=== PATIENT | male | born 1980 | race American Indian/Alaskan Native ===

== ENCOUNTER 2021-04-27 04:33 | Inpatient (IN) | payer SELFPAY ==
[2021-04-27] MEDS ORDERED: SODIUM CHLORIDE 0.9% 1000 ML 1,000 ML IV ONE ×2 (04:36→05:46)
--- NOTE | 2021-04-27 04:44 | Emergency Department Report ---
ED General Adult HPI - General Stated complaint: HYPERGLYCEMIA PUI?: Yes Source: patient, RN notes reviewed Limitations: No Limitations - History of Present Illness Initial comments: A 40-year-old male with history of type 1 diabetes on insulin pump. 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 Symptoms at this time include abdominal pain and shortness of breath. Patient denies history of PE or DVT. There is no calf or chest pain no nausea no vomiting no dizziness or lightheadedness. There is no fever in triage today. - Related Data Allergies Allergy/AdvReac Type Severity Reaction Status Date / Time No Known Allergies Allergy Verified 04/27/21 04:41 ED Review of Systems ROS: Stated complaint: HYPERGLYCEMIA Other details as noted in HPI Constitutional: chills. denies: fever Eyes: denies: eye pain, eye discharge, vision change ENT: congestion. denies: ear pain, throat pain Respiratory: cough, shortness of breath. denies: wheezing Cardiovascular: denies: chest pain, palpitations Endocrine: no symptoms reported Gastrointestinal: denies: abdominal pain, nausea, vomiting, diarrhea Genitourinary: denies: urgency, dysuria Musculoskeletal: denies: back pain, joint swelling, arthralgia Skin: denies: rash, lesions Neurological: denies: headache, weakness, paresthesias, vertigo Psychiatric: denies: anxiety, depression Hematological/Lymphatic: denies: easy bleeding, easy bruising ED Physical Exam - General General appearance: alert, in no apparent distress - Head Head exam: Present: normocephalic, normal inspection - Eye Eye exam: Present: normal appearance, EOMI Pupils: Present: normal accommodation - ENT ENT exam: Present: normal orophraynx, mucous membranes moist - Neck Neck exam: Present: normal inspection, full ROM. Absent: tenderness - Respiratory Respiratory exam: Present: normal lung sounds bilaterally, chest wall tenderness (anterior right upper chest wall tender to palpation, no crepitus no step off ). Absent: wheezes, rales, rhonchi, stridor - Cardiovascular Cardiovascular Exam: Present: normal rhythm, tachycardia, normal heart sounds. Absent: systolic murmur, diastolic murmur, rubs, gallop - GI/Abdominal GI/Abdominal exam: Present: soft, normal bowel sounds. Absent: distended, tenderness, bruit, hernia - Rectal Rectal exam: Present: deferred - Extremities Exam Extremities exam: Present: normal inspection, full ROM, normal capillary refill. Absent: tenderness - Back Exam Back exam: Present: normal inspection. Absent: CVA tenderness (L) - Neurological Exam Neurological exam: Present: alert, oriented X3, CN II-XII intact - Psychiatric Psychiatric exam: Present: normal affect, normal mood - Skin Skin exam: Present: warm, dry, intact, normal color. Absent: rash Critical care attestation.: If time is entered above; I have spent that time in minutes in the direct care of this critically ill patient, excluding procedure time. ED Disposition Condition: Stable
--- NOTE | 2021-04-27 04:49 | Event Note ---
ED Screening Note Date of service: 04/27/21 Time: 04:48 ED Screening Note: A 40-year-old male with history of type 1 diabetes on insulin pump. 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 Symptoms at this time include abdominal pain and shortness of breath. Patient denies history of PE or DVT. There is no calf or chest pain no nausea no vomiting no dizziness or lightheadedness. There is no fever in triage today. This initial assessment/diagnostic orders/clinical plan/treatment(s) is/are subject to change based on patients health status, clinical progression and re-assessment by fellow clinical providers in the ED. Further treatment and workup at subsequent clinical providers discretion. Patient/guardian urged not to elope from the ED as their condition may be serious if not clinically assessed and managed. Initial orders include: ekg cxr, cmp cbc, pt, ptt, iv,
--- NOTE | 2021-04-27 05:18 | XRay Report ---
CHEST 2 VIEWS INDICATION: sob. COMPARISON: None FINDINGS: SUPPORT DEVICES: None. HEART: Within normal limits. LUNGS/PLEURA: No acute air space or interstitial disease. No pneumothorax. ADDITIONAL FINDINGS: None. IMPRESSION: 1. No acute findings. Signer Name: Pankaj Kennedy MD Signed: 04/27/2021 5:13 AM Workstation Name: [id number]
[2021-04-27 05:21] LABS: INR 1.21 (0.87-1.13); Mean Corpuscular HGB Conc 29 % (32-34); Mean Corpuscular Volume 90 fl (84-94); Platelet Count 262 K/mm3 (140-440); Red Blood Count 5.83 M/mm3 (3.65-5.03); Red Cell Distribution Width 16.4 % (13.2-15.2)
[2021-04-27 05:22] LABS: Partial Thromboplastin Time 26.6 Sec. (24.2-36.6)
[2021-04-27 05:36] LABS: Albumin 4.9 g/dL (3.9-5); Calcium 9.9 mg/dL (8.4-10.2)
[2021-04-27 05:47] LABS: Hematocrit 52.4 % (35.5-45.6); Hemoglobin 15.4 gm/dl (11.8-15.2)
[2021-04-27] MEDS ORDERED: INSULIN REGULAR, HUMAN 100 UNITS/1 ML IV ONE (05:48)
[2021-04-27] MEDS ORDERED: DEXTROSE 50% IN WATER (25GM) 50 ML SYRINGE IV PRN (06:23)
--- NOTE | 2021-04-27 06:27 | Emergency Department Report ---
ED General Adult HPI - General Chief complaint: Dyspnea/Respdistress Stated complaint: HYPERGLYCEMIA Time Seen by Provider: 04/27/21 05:45 Source: patient Mode of arrival: Ambulatory Limitations: No Limitations - History of Present Illness Initial comments: Patient presents secondary to shortness of breath. He is a truck shop supervisor. He had become short of breath and generally weak. His and he decided he should come in to get seen. Symptoms started over the last day. There has been no significant cough or congestion. He has had subjective fevers and chills. He states he just has malaise. There is no muscle ache or body ache. He denies dysuria or frequency. There has been no known coronavirus exposure. He checked his sugar earlier today and it was 500. That is extraordinarily high for him. He has had DKA before and required admission. The last time that occurred was in 2019. Patient states that he has been taking his insulin regularly. There has been some nausea with vomiting. He has not had diarrhea. He denies hematemesis or coffee-ground emesis. There is no melenic stool. Patient denies recent travel. Severity scale (0 -10): 3 - Related Data Allergies Allergy/AdvReac Type Severity Reaction Status Date / Time No Known Allergies Allergy Verified 04/27/21 04:41 ED Review of Systems ROS: Stated complaint: HYPERGLYCEMIA Other details as noted in HPI Comment: All other systems reviewed and negative Constitutional: fever (Subjective) Eyes: denies: vision change ENT: denies: epistaxis Cardiovascular: denies: chest pain Endocrine: increased urine Gastrointestinal: as per HPI Genitourinary: denies: dysuria Musculoskeletal: denies: back pain Skin: denies: rash Neurological: denies: headache Hematological/Lymphatic: denies: easy bruising ED Past Medical Hx - Past Medical History Previous Medical History?: Yes Hx Diabetes: Yes - Surgical History Past Surgical History?: No - Family History Family history: diabetes ED Physical Exam - General Limitations: No Limitations, Other (Pulse ox noted and normal.) General appearance: alert, in distress (Kussmaul respirations) - Head Head exam: Present: atraumatic, normocephalic - Eye Eye exam: Present: normal appearance, EOMI. Absent: scleral icterus - ENT ENT exam: Present: mucous membranes dry, normal external ear exam - Neck Neck exam: Present: normal inspection. Absent: meningismus - Respiratory Respiratory exam: Present: normal lung sounds bilaterally, respiratory distress (Kussmaul respiration) - Cardiovascular Cardiovascular Exam: Present: normal rhythm, tachycardia - GI/Abdominal GI/Abdominal exam: Present: soft. Absent: distended, tenderness - Extremities Exam Extremities exam: Present: normal capillary refill - Back Exam Back exam: Absent: CVA tenderness (R), CVA tenderness (L) - Neurological Exam Neurological exam: Present: alert, oriented X3, CN II-XII intact. Absent: motor sensory deficit - Psychiatric Psychiatric exam: Present: normal affect, normal mood - Skin Skin exam: Present: warm, dry ED Course Vital Signs 04/27/21 04:38 Temperature 99.0 F Pulse Rate 118 H Respiratory 23 Rate Blood Pressure 125/59 [Right] O2 Sat by Pulse 99 Oximetry - Reevaluation(s) Reevaluation #1: 04/27/21 06:26 Labs have been noted. Patient is in DKA. He will require admission. DKA protocol has been instituted. He does have significant leukocytosis with no obvious source for infection. UA and chest x-ray have also been ordered. Old records noted. Reevaluation #2: 04/27/21 07:03 Chest x-ray has been reviewed. Patient does not have evidence of coronavirus. We will still check urine. He will still require admission. DKA protocol has been started. ED Medical Decision Making - Lab Data Result diagrams: 04/27/21 04:53 04/27/21 04:53 Rhythm strip: Sinus tachycardia without ectopy. Monitor observe 10 seconds. - Radiology Data Radiology results: report reviewed - Medical Decision Making Patient presents with generalized malaise in the setting of nausea and vomiting. He had Kussmaul respirations. He was tachycardic. He did report dry mucous membranes. Glucose was elevated. All of this is consistent with diabetic keto acidosis. The trigger for him developing DKA is unclear. He does not have any obvious respiratory infection. He has not reported dysuria or frequency. There is no evidence of cellulitis or rash. He does not have chest x-ray findings suggestive of coronavirus. Regardless, he does have leukocytosis which could simply be related to DKA. We will proceed with ongoing treatment. Insulin drip has been started. He will require ICU admit. Critical Care Time: Yes (35 minutes exclusive of all procedures) Critical care attestation.: If time is entered above; I have spent that time in minutes in the direct care of this critically ill patient, excluding procedure time. ED Disposition Clinical Impression: Dehydration DKA, type 1 Qualifiers: Diabetes mellitus complication detail: without coma Qualified Code(s): E10.10 - Type 1 diabetes mellitus with ketoacidosis without coma Leukocytosis Qualifiers: Leukocytosis type: unspecified Qualified Code(s): D72.829 - Elevated white blood cell count, unspecified Disposition: 09 ADMITTED INPATIENT Is pt being admited?: Yes Condition: Stable Instructions: Diabetes Mellitus Type 2 in Adults (ED)
[2021-04-27] MEDS: INSULIN REGULAR, HUMAN 100 UNITS in SODIUM CHLORIDE 0.9% 99 ML IV SCH ×3 (06:52→20:56)
[2021-04-27] MEDS ORDERED: INSULIN REGULAR, HUMAN 100 UNITS in SODIUM CHLORIDE 0.9% 99 ML IV SCH (07:00)
[2021-04-27 07:02] LABS: Band Neutrophils # (Manual) 1.1 K/mm3; Basophils % (Manual) 0 % (0.0-1.8); Total Cells Counted 100
[2021-04-27 07:03] LABS: Toxic Vacuolation 1+
[2021-04-27 07:53] LABS: Calcium 8.9 mg/dL (8.4-10.2)
[2021-04-27] MEDS ORDERED: SODIUM BICARBONATE 150 MEQ in DEXTROSE 5% IN WATER 1,000 ML IV SCH (09:00)
--- NOTE | 2021-04-27 09:04 | History and Physical Report ---
History of Present Illness History of present illness: HPI: 40-year-old male past medical history of type 1 diabetes on insulin presenting to our facility for general malaise associated with nausea and vomiting. Onset was since 6 PM yesterday. Patient denies any fevers, chills, body aches. Blood sugars were checked yesterday and noted to be in 500s. He wears a insulin pump and stated that he has had some concerns with malfunctioning. He also stated he needed more insulin for his pump's reservoir. His ballistics tester office had sent the prescription to his pharmacy but it only just got filled today. Patient was brought to emergency room yesterday by . Patient is adamant that he is compliant with his insulin regimen and counts his carbohydrates. He states his fasting AM sugars typically range from 75 to 110 mg/dL. He follows with Dr. Lila Crow his ballistics tester. He states his last episode of DKA was more than 10 years ago. He has been a type 1 diabetic for 25 years and self reports an A1c of 7.3. On my encounter, patient states that he is feeling better. Remainder of ROS negative except for stated above PMHx: Type 1 diabetes PSHx: denies FHx: diabetes SHx: Tobacco use-denies ETOH Use-denies Recreational Drug Use- denies Occupation-truck rental clerk Interactive Media Specialist: Dr. Lila Crow , [facility] Past History Past Medical History: diabetes Past Surgical History: No surgical history Social history: no significant social history, Family history: diabetes Medications and Allergies Allergies Allergy/AdvReac Type Severity Reaction Status Date / Time No Known Allergies Allergy Verified 04/27/21 04:41 Active Meds: Active Medications Dextrose (Dextrose 50% In Water (25gm) 50 Ml Syringe) 0 ml IV Q30MIN PRN; Protocol PRN Reason: Hypoglycemia Insulin Human Regular 100 (units/ Sodium Chloride) 100 mls @ 8 mls/hr IV TITR FARHEEN; Protocol Last Titration: 04/27/21 07:59 Dose: 8 units/hr, 8 mls/hr Sodium Bicarbonate 150 meq/ (Dextrose) 1,150 mls @ 125 mls/hr IV DIRECT FARHEEN Review of Systems Constitutional: weakness, malaise Exam - Physical Exam Narrative exam: Physical Exam: VITAL SIGNS: Reviewed. GENERAL: The patient appears normally developed, Vital signs as documented. HEAD: No signs of head trauma. EYES: Pupils are equal. Extraocular motions intact. EARS: Hearing grossly intact. MOUTH: Oropharynx is normal. NECK: No adenopathy, no JVD. CHEST: Chest with clear breath sounds bilaterally. No wheezes, rales, or rhonchi. CARDIAC: Regular rate and rhythm. S1 and S2, without murmurs, gallops, or rubs. VASCULAR: No Edema. Peripheral pulses normal and equal in all extremities. ABDOMEN: Soft, non tender and non distended. No rebound or guarding, and no masses palpated. Bowel Sounds normal. MUSCULOSKELETAL: Good range of motion of all major joints. Extremities without clubbing, cyanosis or edema. NEUROLOGIC EXAM: Alert and oriented x 4. no focal sensory or strength deficits. PSYCHIATRIC: Mood normal. SKIN: detail exam as documented in skin assessment - Constitutional Vitals: Temp Pulse Resp BP Pulse Ox 99.0 F 99 H 20 126/51 99 04/27/21 04:38 04/27/21 05:51 04/27/21 08:06 04/27/21 07:45 04/27/21 08:06 Results - Labs CBC & Chem 7: 04/27/21 04:53 04/27/21 10:05 Labs: Laboratory Last Values WBC 28.7 K/mm3 (4.5-11.0) H 04/27/21 04:53 RBC 5.83 M/mm3 (3.65-5.03) H 04/27/21 04:53 Hgb 15.4 gm/dl (11.8-15.2) H 04/27/21 04:53 Hct 52.4 % (35.5-45.6) H 04/27/21 04:53 MCV 90 fl (84-94) 04/27/21 04:53 MCH 26 pg (28-32) L 04/27/21 04:53 MCHC 29 % (32-34) L 04/27/21 04:53 RDW 16.4 % (13.2-15.2) H 04/27/21 04:53 Plt Count 262 K/mm3 (140-440) 04/27/21 04:53 Add Manual Diff Complete 04/27/21 04:53 Total Counted 100 04/27/21 04:53 Seg Neuts % (Manual) 82.0 % (40.0-70.0) H 04/27/21 04:53 Band Neutrophils % 4.0 % 04/27/21 04:53 Lymphocytes % (Manual) 8.0 % (13.4-35.0) L 04/27/21 04:53 Reactive Lymphs % (Man) 0 % 04/27/21 04:53 Monocytes % (Manual) 4.0 % (0.0-7.3) 04/27/21 04:53 Eosinophils % (Manual) 2.0 % (0.0-4.3) 04/27/21 04:53 Basophils % (Manual) 0 % (0.0-1.8) 04/27/21 04:53 Metamyelocytes % 0 % 04/27/21 04:53 Myelocytes % 0 % 04/27/21 04:53 Promyelocytes % 0 % 04/27/21 04:53 Blast Cells % 0 % 04/27/21 04:53 Nucleated RBC % Not Reportable 04/27/21 04:53 Seg Neutrophils # Man 23.5 K/mm3 (1.8-7.7) H 04/27/21 04:53 Band Neutrophils # 1.1 K/mm3 04/27/21 04:53 Lymphocytes # (Manual) 2.3 K/mm3 (1.2-5.4) 04/27/21 04:53 Abs React Lymphs (Man) 0.0 K/mm3 04/27/21 04:53 Monocytes # (Manual) 1.1 K/mm3 (0.0-0.8) H 04/27/21 04:53 Eosinophils # (Manual) 0.6 K/mm3 (0.0-0.4) H 04/27/21 04:53 Basophils # (Manual) 0.0 K/mm3 (0.0-0.1) 04/27/21 04:53 Metamyelocytes # 0.0 K/mm3 04/27/21 04:53 Myelocytes # 0.0 K/mm3 04/27/21 04:53 Promyelocytes # 0.0 K/mm3 04/27/21 04:53 Blast Cells # 0.0 K/mm3 04/27/21 04:53 WBC Morphology Not Reportable 04/27/21 04:53 Hypersegmented Neuts Not Reportable 04/27/21 04:53 Hyposegmented Neuts Not Reportable 04/27/21 04:53 Hypogranular Neuts Not Reportable 04/27/21 04:53 Smudge Cells Not Reportable 04/27/21 04:53 Toxic Granulation Not Reportable 04/27/21 04:53 Toxic Vacuolation 1+ 04/27/21 04:53 Dohle Bodies Not Reportable 04/27/21 04:53 Pelger-Huet Anomaly Not Reportable 04/27/21 04:53 Ruperto Rods Not Reportable 04/27/21 04:53 Platelet Estimate Appears normal 04/27/21 04:53 Clumped Platelets Not Reportable 04/27/21 04:53 Plt Clumps, EDTA Not Reportable 04/27/21 04:53 Large Platelets Not Reportable 04/27/21 04:53 Giant Platelets Not Reportable 04/27/21 04:53 Platelet Satelliting Not Reportable 04/27/21 04:53 Plt Morphology Comment Not Reportable 04/27/21 04:53 RBC Morphology Not Reportable 04/27/21 04:53 Dimorphic RBCs Not Reportable 04/27/21 04:53 Polychromasia Not Reportable 04/27/21 04:53 Hypochromasia Not Reportable 04/27/21 04:53 Poikilocytosis Not Reportable 04/27/21 04:53 Anisocytosis Not Reportable 04/27/21 04:53 Microcytosis Not Reportable 04/27/21 04:53 Macrocytosis Not Reportable 04/27/21 04:53 Spherocytes Not Reportable 04/27/21 04:53 Pappenheimer Bodies Not Reportable 04/27/21 04:53 Sickle Cells Not Reportable 04/27/21 04:53 Target Cells Not Reportable 04/27/21 04:53 Tear Drop Cells Not Reportable 04/27/21 04:53 Ovalocytes Not Reportable 04/27/21 04:53 Helmet Cells Not Reportable 04/27/21 04:53 Yusuf-Lamy Bodies Not Reportable 04/27/21 04:53 [place] Rings Not Reportable 04/27/21 04:53 [place] Cells Not Reportable 04/27/21 04:53 Bite Cells Not Reportable 04/27/21 04:53 Crenated Cell Not Reportable 04/27/21 04:53 Elliptocytes Not Reportable 04/27/21 04:53 Acanthocytes (Spur) Not Reportable 04/27/21 04:53 Rouleaux Not Reportable 04/27/21 04:53 Hemoglobin C Crystals Not Reportable 04/27/21 04:53 Schistocytes Not Reportable 04/27/21 04:53 Malaria parasites Not Reportable 04/27/21 04:53 Roberto Bodies Not Reportable 04/27/21 04:53 Hem Pathologist Commnt No 04/27/21 04:53 PT 16.6 Sec. (12.2-14.9) H 04/27/21 04:53 INR 1.21 (0.87-1.13) H 04/27/21 04:53 APTT 26.6 Sec. (24.2-36.6) 04/27/21 04:53 VBG pH 6.973 (7.320-7.420) L* 04/27/21 04:53 Sodium 136 mmol/L (137-145) L 04/27/21 06:38 Potassium 6.6 mmol/L (3.6-5.0) H* 04/27/21 06:38 Chloride 97.7 mmol/L (98-107) L 04/27/21 06:38 Carbon Dioxide 3 mmol/L (22-30) L* 04/27/21 06:38 Anion Gap 42 mmol/L 04/27/21 06:38 BUN 24 mg/dL (9-20) H 04/27/21 06:38 Creatinine 1.9 mg/dL (0.8-1.3) H 04/27/21 06:38 Estimated GFR 48 ml/min 04/27/21 06:38 BUN/Creatinine Ratio 13 % 04/27/21 06:38 Glucose 687 mg/dL (75-100) H* 04/27/21 06:38 POC Glucose 541 mg/dL (70-105) H 04/27/21 08:03 Lactic Acid 7.20 mmol/L (0.7-2.0) H* 04/27/21 06:38 Calcium 8.9 mg/dL (8.4-10.2) 04/27/21 06:38 Phosphorus 9.00 mg/dL (2.5-4.5) H 04/27/21 06:38 Magnesium 2.80 mg/dL (1.7-2.3) H 04/27/21 06:38 Total Bilirubin 0.20 mg/dL (0.1-1.2) 04/27/21 04:53 AST 19 units/L (5-40) 04/27/21 04:53 ALT 26 units/L (7-56) 04/27/21 04:53 Alkaline Phosphatase 148 units/L (35-129) H 04/27/21 04:53 Total Protein 7.8 g/dL (6.3-8.2) 04/27/21 04:53 Albumin 4.9 g/dL (3.9-5) 04/27/21 04:53 Albumin/Globulin Ratio 1.7 % 04/27/21 04:53 Assessment and Plan Assessment and plan: #Diabetic ketoacidosis - suspect patient has had a malfunctioning insulin pump/out of insulin - Blood sugars in 687 on admission, A, VBG 6.9, UA shows elevated glucose+ketones - Fluids and insulin gtt per DKA protocol - start bicarb gtt - trend gap on serial bmp - CCM consulted #Severe metabolic acidosis - low bicarb: 3, ph: 6.9 - bicarb gtt - DKA management as above. - trend on serial bmp for improvement #Hyperkalemia - 6.6 -->5.2 - corrected with insulin gtt. - trend on bmp #SIRS POA - elevated wbc, LA, likey reactive from DKA - doubt infectious etiology #Type 2 diabetes with hyperglycemia - accuchecks q1hr until gap closes - uses insulin pump at home, pump had malfunction - follows with ballistics tester as an outpatient - self reports a1c: 7.3 - ordered a1c. #Advance care planning Disease education conducted, care plan discussed, diagnoses discussed, prognosis discussed, patient is full code, patient acknowledges understanding and agree with care plan, +30 minutes. Dispo: Currently ICU status. Patient clinical status improved. Once anion gap closed and patient tolerating p.o., can start subcutaneous insulin injections. anticipate d/c in next 24 hrs.
[2021-04-27 10:06] LABS: Bacteria,Urine 1+ /HPF (Negative); Bilirubin,Urine NEG (Negative); Blood,Urine MOD (Negative); Color,Urine Straw (Yellow); Mucus,Urine FEW /HPF; RBC,Urine < 1.0 /HPF (0.0-6.0); Urobilinogen,Urine < 2.0 mg/dL (<2.0)
[2021-04-27 10:08] LABS: WBC,Urine < 1.0 /HPF (0.0-6.0)
[2021-04-27 10:38] LABS: Calcium 8.5 mg/dL (8.4-10.2)
--- NOTE | 2021-04-27 14:25 | Consultation ---
History of Present Illness - Reason for Consult Consult date: 04/27/21 - History of Present Illness 40-year-old male past medical history of type 1 diabetes on insulin presenting to our facility for general malaise associated with nausea and vomiting. Onset was since 6 PM yesterday. Patient denies any fevers, chills, body aches. Blood sugars were checked yesterday and noted to be in 500s. He wears a insulin pump and stated that he has had some concerns with malfunctioning. He also stated he needed more insulin for his pump's reservoir. His director of manufacturing office had sent the prescription to his pharmacy but it only just got filled today. Patient was brought to emergency room yesterday by . Patient is adamant that he is compliant with his insulin regimen and counts his carbohydrates. He states his fasting AM sugars typically range from 75 to 110 mg/dL. He follows with Dr. Lila Crow his director of manufacturing. He states his last episode of DKA was more than 10 years ago. He has been a type 1 diabetic for 25 years and self reports an A1c of 7.3. On my encounter, patient states that he is feeling better. Remainder of ROS negative except for stated above Past History Past Medical History: diabetes Past Surgical History: No surgical history Social history: no significant social history, Family history: diabetes Medications and Allergies Allergies Allergy/AdvReac Type Severity Reaction Status Date / Time No Known Allergies Allergy Verified 04/27/21 04:41 Active Meds: Active Medications Dextrose (Dextrose 50% In Water (25gm) 50 Ml Syringe) 0 ml IV Q30MIN PRN; Pro tocol PRN Reason: Hypoglycemia Insulin Human Regular 100 (units/ Sodium Chloride) 100 mls @ 8 mls/hr IV TITR FARHEEN; Protocol Last Titration: 04/27/21 13:56 Dose: 10 units/hr, 10 mls/hr Sodium Bicarbonate 150 meq/ (Dextrose) 1,150 mls @ 125 mls/hr IV DIRECT FARHEEN Last Admin: 04/27/21 09:52 Dose: 125 mls/hr Exam - Constitutional Vitals: Temp Pulse Resp BP Pulse Ox 99.0 F 99 H 20 126/51 99 04/27/21 04:38 04/27/21 05:51 04/27/21 08:06 04/27/21 07:45 04/27/21 08:06 Results - Labs CBC & Chem 7: 04/27/21 04:53 04/27/21 10:05 Labs: Abnormal lab results 04/27/21 04/27/21 04/27/21 Range/Units 04:53 04:53 04:53 WBC 28.7 H (4.5-11.0) K/mm3 RBC 5.83 H (3.65-5.03) M/mm3 Hgb 15.4 H (11.8-15.2) gm/dl Hct 52.4 H (35.5-45.6) % MCH 26 L (28-32) pg MCHC 29 L (32-34) % RDW 16.4 H (13.2-15.2) % Seg Neuts % (Manual) 82.0 H (40.0-70.0) % Lymphocytes % (Manual) 8.0 L (13.4-35.0) % Seg Neutrophils # Man 23.5 H (1.8-7.7) K/mm3 Monocytes # (Manual) 1.1 H (0.0-0.8) K/mm3 Eosinophils # (Manual) 0.6 H (0.0-0.4) K/mm3 PT (12.2-14.9) Sec. INR (0.87-1.13) VBG pH 6.973 L* (7.320-7.420) Sodium (137-145) mmol/L Potassium 5.8 H (3.6-5.0) mmol/L Chloride 95.3 L (98-107) mmol/L Carbon Dioxide 4 L* (22-30) mmol/L BUN 24 H (9-20) mg/dL Creatinine 2.1 H (0.8-1.3) mg/dL Glucose 642 H* (75-100) mg/dL POC Glucose (70-105) mg/dL Lactic Acid (0.7-2.0) mmol/L Phosphorus (2.5-4.5) mg/dL Magnesium (1.7-2.3) mg/dL Alkaline Phosphatase 148 H (35-129) units/L 04/27/21 04/27/21 04/27/21 Range/Units 04:53 06:38 06:38 WBC (4.5-11.0) K/mm3 RBC (3.65-5.03) M/mm3 Hgb (11.8-15.2) gm/dl Hct (35.5-45.6) % MCH (28-32) pg MCHC (32-34) % RDW (13.2-15.2) % Seg Neuts % (Manual) (40.0-70.0) % Lymphocytes % (Manual) (13.4-35.0) % Seg Neutrophils # Man (1.8-7.7) K/mm3 Monocytes # (Manual) (0.0-0.8) K/mm3 Eosinophils # (Manual) (0.0-0.4) K/mm3 PT 16.6 H (12.2-14.9) Sec. INR 1.21 H (0.87-1.13) VBG pH (7.320-7.420) Sodium (137-145) mmol/L Potassium (3.6-5.0) mmol/L Chloride (98-107) mmol/L Carbon Dioxide (22-30) mmol/L BUN (9-20) mg/dL Creatinine (0.8-1.3) mg/dL Glucose (75-100) mg/dL POC Glucose (70-105) mg/dL Lactic Acid 7.20 H* (0.7-2.0) mmol/L Phosphorus 9.00 H (2.5-4.5) mg/dL Magnesium (1.7-2.3) mg/dL Alkaline Phosphatase (35-129) units/L 04/27/21 04/27/21 04/27/21 Range/Units 06:38 08:03 09:15 WBC (4.5-11.0) K/mm3 RBC (3.65-5.03) M/mm3 Hgb (11.8-15.2) gm/dl Hct (35.5-45.6) % MCH (28-32) pg MCHC (32-34) % RDW (13.2-15.2) % Seg Neuts % (Manual) (40.0-70.0) % Lymphocytes % (Manual) (13.4-35.0) % Seg Neutrophils # Man (1.8-7.7) K/mm3 Monocytes # (Manual) (0.0-0.8) K/mm3 Eosinophils # (Manual) (0.0-0.4) K/mm3 PT (12.2-14.9) Sec. INR (0.87-1.13) VBG pH (7.320-7.420) Sodium 136 L (137-145) mmol/L Potassium 6.6 H* (3.6-5.0) mmol/L Chloride 97.7 L (98-107) mmol/L Carbon Dioxide 3 L* (22-30) mmol/L BUN 24 H (9-20) mg/dL Creatinine 1.9 H (0.8-1.3) mg/dL Glucose 687 H* (75-100) mg/dL POC Glucose 541 H 424 H (70-105) mg/dL Lactic Acid (0.7-2.0) mmol/L Phosphorus (2.5-4.5) mg/dL Magnesium 2.80 H (1.7-2.3) mg/dL Alkaline Phosphatase (35-129) units/L 04/27/21 04/27/21 04/27/21 Range/Units 10:05 10:05 11:09 WBC (4.5-11.0) K/mm3 RBC (3.65-5.03) M/mm3 Hgb (11.8-15.2) gm/dl Hct (35.5-45.6) % MCH (28-32) pg MCHC (32-34) % RDW (13.2-15.2) % Seg Neuts % (Manual) (40.0-70.0) % Lymphocytes % (Manual) (13.4-35.0) % Seg Neutrophils # Man (1.8-7.7) K/mm3 Monocytes # (Manual) (0.0-0.8) K/mm3 Eosinophils # (Manual) (0.0-0.4) K/mm3 PT (12.2-14.9) Sec. INR (0.87-1.13) VBG pH (7.320-7.420) Sodium (137-145) mmol/L Potassium 5.2 H D (3.6-5.0) mmol/L Chloride (98-107) mmol/L Carbon Dioxide 4 L* (22-30) mmol/L BUN 25 H (9-20) mg/dL Creatinine 1.7 H (0.8-1.3) mg/dL Glucose 391 H (75-100) mg/dL POC Glucose 309 H (70-105) mg/dL Lactic Acid 3.30 H* (0.7-2.0) mmol/L Phosphorus (2.5-4.5) mg/dL Magnesium (1.7-2.3) mg/dL Alkaline Phosphatase (35-129) units/L 04/27/21 04/27/21 Range/Units 12:24 13:50 WBC (4.5-11.0) K/mm3 RBC (3.65-5.03) M/mm3 Hgb (11.8-15.2) gm/dl Hct (35.5-45.6) % MCH (28-32) pg MCHC (32-34) % RDW (13.2-15.2) % Seg Neuts % (Manual) (40.0-70.0) % Lymphocytes % (Manual) (13.4-35.0) % Seg Neutrophils # Man (1.8-7.7) K/mm3 Monocytes # (Manual) (0.0-0.8) K/mm3 Eosinophils # (Manual) (0.0-0.4) K/mm3 PT (12.2-14.9) Sec. INR (0.87-1.13) VBG pH (7.320-7.420) Sodium (137-145) mmol/L Potassium (3.6-5.0) mmol/L Chloride (98-107) mmol/L Carbon Dioxide (22-30) mmol/L BUN (9-20) mg/dL Creatinine (0.8-1.3) mg/dL Glucose (75-100) mg/dL POC Glucose 313 H 321 H (70-105) mg/dL Lactic Acid (0.7-2.0) mmol/L Phosphorus (2.5-4.5) mg/dL Magnesium (1.7-2.3) mg/dL Alkaline Phosphatase (35-129) units/L
[2021-04-27 16:45] LABS: BUN/Creatinine Ratio 15; Blood Urea Nitrogen 21 mg/dL (9-20); Calcium 7.9 mg/dL (8.4-10.2); Hemolysis Index 67
[2021-04-27] MEDS: D5W/0.45% NACL/KCL 20 MEQ 20 MEQ/1,000 ML BAG IV SCH (18:48)
[2021-04-27 21:28] LABS: BUN/Creatinine Ratio 15; Blood Urea Nitrogen 21 mg/dL (9-20); Calcium 8.5 mg/dL (8.4-10.2); Hemolysis Index 12
[2021-04-28] MEDS: INSULIN REGULAR, HUMAN 100 UNITS in SODIUM CHLORIDE 0.9% 99 ML IV SCH ×2 (01:42→13:56)
[2021-04-28 07:21] LABS: BUN/Creatinine Ratio 15; Blood Urea Nitrogen 18 mg/dL (9-20); Calcium 9.2 mg/dL (8.4-10.2); Hemolysis Index 14
--- NOTE | 2021-04-28 08:03 | Discharge Summary ---
Providers - Providers Date of Admission: 04/27/21 07:23 Attending physician: ZACH ORLANDO MD 04/27/21 06:24 Consult to Dietitian/Nutrition [CONS] Routine Physician Instructions: Reason For Exam: DKA Reason for Consult: Nutrition Recommendations Reason for Consult: Diet education 04/27/21 08:15 Consult to Physician [CONS] Routine Comment: Consulting Provider: AFTAB CLARK Physician Instructions: Reason For Exam: dka management Primary care physician: CONICAL MIXER Hospitalization Condition: Stable Exam - Constitutional Vitals: Temp Pulse Resp BP Pulse Ox 99.0 F 96 H 17 112/18 100 04/27/21 04:38 04/28/21 07:01 04/28/21 07:01 04/28/21 07:01 04/28/21 07:01 Plan Follow up with: SUE ALEXANDRE MD [Primary Care Provider] - 3-5 Days
[2021-04-28 11:56] LABS: BUN/Creatinine Ratio 16; Blood Urea Nitrogen 19 mg/dL (9-20); Calcium 9.2 mg/dL (8.4-10.2); Hemolysis Index 7
--- NOTE | 2021-04-28 12:30 | Progress Note ---
Assessment and Plan Assessment and plan: HPI: 40-year-old male past medical history of type 1 diabetes on insulin presenting to our facility for general malaise associated with nausea and vomiting. Onset was since 6 PM yesterday. Patient denies any fevers, chills, body aches. Blood sugars were checked yesterday and noted to be in 500s. He wears a insulin pump and stated that he has had some concerns with malfunctioning. He also stated he needed more insulin for his pump's reservoir. His pharmacy student office had sent the prescription to his pharmacy but it only just got filled today. Patient was brought to emergency room yesterday by . Patient is adamant that he is compliant with his insulin regimen and counts his carbohydrates. He states his fasting AM sugars typically range from 75 to 110 mg/dL. He follows with Dr. Lila Crow his pharmacy student. He states his last episode of DKA was more than 10 years ago. He has been a type 1 diabetic for 25 years and self reports an A1c of 7.3. On my encounter, patient states that he is feeling better. Admitted for DKA to ICU. Hospital Course: 04/27/21: Currently ICU status. Patient clinical status improved. Once anion gap closed and patient tolerating p.o., can start subcutaneous insulin injections. anticipate d/c in next 24 hrs. 04/28/21: Serial BMP's demonstrate worsening of AG. Coordinated with RN to continue insulin drip and uptitrate D5W+ 20K as need to maintain insulin gtt. WIll follow anion gap. Once closed and patient tolerating PO, will plan for discharge. Anticipate in next 12- 24 hrs. Assessment and Plan: #Diabetic ketoacidosis - suspect patient has had a malfunctioning insulin pump/out of insulin - Blood sugars in 687 on admission, A, VBG 6.9, UA shows elevated glucose+ketones - Fluids and insulin gtt per DKA protocol - start bicarb gtt - trend gap on serial bmp - CCM consulted #Severe metabolic acidosis - low bicarb: 3, ph: 6.9 - bicarb gtt - DKA management as above. - trend on serial bmp for improvement #Hyperkalemia - 6.6 -->5.2 - corrected with insulin gtt. - trend on bmp #SIRS POA - elevated wbc, LA, likey reactive from DKA - doubt infectious etiology #Type 2 diabetes with hyperglycemia - accuchecks q1hr until gap closes - uses insulin pump at home, pump had malfunction - follows with pharmacy student as an outpatient - self reports a1c: 7.3 - ordered a1c. #Advance care planning Disease education conducted, care plan discussed, diagnoses discussed, prognosis discussed, patient is full code, patient acknowledges understanding and agree with care plan, +30 minutes. The high probability of a clinically significant, sudden or life threatening deterioration of the [endo, renal] system(s) required my full and direct attention, intervention and personal management. The aggregate critical care time was [60] minutes. This time is in addition to time spent performing reported procedures but includes the following: [x] Data Review and interpretation [x] Patient assessment and monitoring of vital signs [x] Documentation [x] Medication orders and management History Interval history: Patient has no acute complaints today. Hospitalist Physical - Physical exam Narrative exam: Physical Exam: VITAL SIGNS: Reviewed. GENERAL: The patient appears normally developed, Vital signs as documented. HEAD: No signs of head trauma. EYES: Pupils are equal. Extraocular motions intact. EARS: Hearing grossly intact. MOUTH: Oropharynx is normal. NECK: No adenopathy, no JVD. CHEST: Chest with clear breath sounds bilaterally. No wheezes, rales, or rhonchi. CARDIAC: Regular rate and rhythm. S1 and S2, without murmurs, gallops, or rubs. VASCULAR: No Edema. Peripheral pulses normal and equal in all extremities. ABDOMEN: Soft, non tender and non distended. No rebound or guarding, and no masses palpated. Bowel Sounds normal. MUSCULOSKELETAL: Good range of motion of all major joints. Extremities without clubbing, cyanosis or edema. NEUROLOGIC EXAM: Alert and oriented x 4. no focal sensory or strength deficits. PSYCHIATRIC: Mood normal. SKIN: detail exam as documented in skin assessment - Constitutional Vitals: Temp Pulse Resp BP Pulse Ox 99.0 F 96 H 22 99/43 100 04/27/21 04:38 04/28/21 09:01 04/28/21 09:01 04/28/21 09:01 04/28/21 09:01 Results - Labs CBC & Chem 7: 04/27/21 04:53 04/28/21 10:57 Labs: Laboratory Last Values WBC 28.7 K/mm3 (4.5-11.0) H 04/27/21 04:53 RBC 5.83 M/mm3 (3.65-5.03) H 04/27/21 04:53 Hgb 15.4 gm/dl (11.8-15.2) H 04/27/21 04:53 Hct 52.4 % (35.5-45.6) H 04/27/21 04:53 MCV 90 fl (84-94) 04/27/21 04:53 MCH 26 pg (28-32) L 04/27/21 04:53 MCHC 29 % (32-34) L 04/27/21 04:53 RDW 16.4 % (13.2-15.2) H 04/27/21 04:53 Plt Count 262 K/mm3 (140-440) 04/27/21 04:53 Add Manual Diff Complete 04/27/21 04:53 Total Counted 100 04/27/21 04:53 Seg Neuts % (Manual) 82.0 % (40.0-70.0) H 04/27/21 04:53 Band Neutrophils % 4.0 % 04/27/21 04:53 Lymphocytes % (Manual) 8.0 % (13.4-35.0) L 04/27/21 04:53 Reactive Lymphs % (Man) 0 % 04/27/21 04:53 Monocytes % (Manual) 4.0 % (0.0-7.3) 04/27/21 04:53 Eosinophils % (Manual) 2.0 % (0.0-4.3) 04/27/21 04:53 Basophils % (Manual) 0 % (0.0-1.8) 04/27/21 04:53 Metamyelocytes % 0 % 04/27/21 04:53 Myelocytes % 0 % 04/27/21 04:53 Promyelocytes % 0 % 04/27/21 04:53 Blast Cells % 0 % 04/27/21 04:53 Nucleated RBC % Not Reportable 04/27/21 04:53 Seg Neutrophils # Man 23.5 K/mm3 (1.8-7.7) H 04/27/21 04:53 Band Neutrophils # 1.1 K/mm3 04/27/21 04:53 Lymphocytes # (Manual) 2.3 K/mm3 (1.2-5.4) 04/27/21 04:53 Abs React Lymphs (Man) 0.0 K/mm3 04/27/21 04:53 Monocytes # (Manual) 1.1 K/mm3 (0.0-0.8) H 04/27/21 04:53 Eosinophils # (Manual) 0.6 K/mm3 (0.0-0.4) H 04/27/21 04:53 Basophils # (Manual) 0.0 K/mm3 (0.0-0.1) 04/27/21 04:53 Metamyelocytes # 0.0 K/mm3 04/27/21 04:53 Myelocytes # 0.0 K/mm3 04/27/21 04:53 Promyelocytes # 0.0 K/mm3 04/27/21 04:53 Blast Cells # 0.0 K/mm3 04/27/21 04:53 WBC Morphology Not Reportable 04/27/21 04:53 Hypersegmented Neuts Not Reportable 04/27/21 04:53 Hyposegmented Neuts Not Reportable 04/27/21 04:53 Hypogranular Neuts Not Reportable 04/27/21 04:53 Smudge Cells Not Reportable 04/27/21 04:53 Toxic Granulation Not Reportable 04/27/21 04:53 Toxic Vacuolation 1+ 04/27/21 04:53 Dohle Bodies Not Reportable 04/27/21 04:53 Pelger-Huet Anomaly Not Reportable 04/27/21 04:53 Ruperto Rods Not Reportable 04/27/21 04:53 Platelet Estimate Appears normal 04/27/21 04:53 Clumped Platelets Not Reportable 04/27/21 04:53 Plt Clumps, EDTA Not Reportable 04/27/21 04:53 Large Platelets Not Reportable 04/27/21 04:53 Giant Platelets Not Reportable 04/27/21 04:53 Platelet Satelliting Not Reportable 04/27/21 04:53 Plt Morphology Comment Not Reportable 04/27/21 04:53 RBC Morphology Not Reportable 04/27/21 04:53 Dimorphic RBCs Not Reportable 04/27/21 04:53 Polychromasia Not Reportable 04/27/21 04:53 Hypochromasia Not Reportable 04/27/21 04:53 Poikilocytosis Not Reportable 04/27/21 04:53 Anisocytosis Not Reportable 04/27/21 04:53 Microcytosis Not Reportable 04/27/21 04:53 Macrocytosis Not Reportable 04/27/21 04:53 Spherocytes Not Reportable 04/27/21 04:53 Pappenheimer Bodies Not Reportable 04/27/21 04:53 Sickle Cells Not Reportable 04/27/21 04:53 Target Cells Not Reportable 04/27/21 04:53 Tear Drop Cells Not Reportable 04/27/21 04:53 Ovalocytes Not Reportable 04/27/21 04:53 Helmet Cells Not Reportable 04/27/21 04:53 [place] Bodies Not Reportable 04/27/21 04:53 [place] Rings Not Reportable 04/27/21 04:53 Lizzy Cells Not Reportable 04/27/21 04:53 Bite Cells Not Reportable 04/27/21 04:53 Crenated Cell Not Reportable 04/27/21 04:53 Elliptocytes Not Reportable 04/27/21 04:53 Acanthocytes (Spur) Not Reportable 04/27/21 04:53 Rouleaux Not Reportable 04/27/21 04:53 Hemoglobin C Crystals Not Reportable 04/27/21 04:53 Schistocytes Not Reportable 04/27/21 04:53 Malaria parasites Not Reportable 04/27/21 04:53 Roberto Bodies Not Reportable 04/27/21 04:53 Hem Pathologist Commnt No 04/27/21 04:53 PT 16.6 Sec. (12.2-14.9) H 04/27/21 04:53 INR 1.21 (0.87-1.13) H 04/27/21 04:53 APTT 26.6 Sec. (24.2-36.6) 04/27/21 04:53 VBG pH 6.973 (7.320-7.420) L* 04/27/21 04:53 Sodium 141 mmol/L (137-145) 04/28/21 10:57 Potassium 4.2 mmol/L (3.6-5.0) 04/28/21 10:57 Chloride 105.3 mmol/L (98-107) 04/28/21 10:57 Carbon Dioxide 11 mmol/L (22-30) L 04/28/21 10:57 Anion Gap 29 mmol/L 04/28/21 10:57 BUN 19 mg/dL (9-20) 04/28/21 10:57 Creatinine 1.2 mg/dL (0.8-1.3) 04/28/21 10:57 Estimated GFR > 60 ml/min 04/28/21 10:57 BUN/Creatinine Ratio 16 % 04/28/21 10:57 Glucose 299 mg/dL (75-100) H 04/28/21 10:57 POC Glucose 265 mg/dL (70-105) H 04/28/21 10:40 Hemoglobin A1c 8.9 % (4-6) H 04/27/21 15:56 Lactic Acid 1.40 mmol/L (0.7-2.0) 04/27/21 15:56 Calcium 9.2 mg/dL (8.4-10.2) 04/28/21 10:57 Phosphorus 9.00 mg/dL (2.5-4.5) H 04/27/21 06:38 Magnesium 2.80 mg/dL (1.7-2.3) H 04/27/21 06:38 Total Bilirubin 0.20 mg/dL (0.1-1.2) 04/27/21 04:53 AST 19 units/L (5-40) 04/27/21 04:53 ALT 26 units/L (7-56) 04/27/21 04:53 Alkaline Phosphatase 148 units/L (35-129) H 04/27/21 04:53 Total Protein 7.8 g/dL (6.3-8.2) 04/27/21 04:53 Albumin 4.9 g/dL (3.9-5) 04/27/21 04:53 Albumin/Globulin Ratio 1.7 % 04/27/21 04:53 Urine Color Straw (Yellow) 04/27/21 Unknown Urine Turbidity Clear (Clear) 04/27/21 Unknown Urine pH 5.0 (5.0-7.0) 04/27/21 Unknown Ur Specific [place] 1.020 (1.003-1.030) 04/27/21 Unknown Urine Protein 30 mg/dl mg/dL (Negative) 04/27/21 Unknown Urine Glucose (UA) >=500 mg/dL (Negative) 04/27/21 Unknown Urine Ketones 80 mg/dL (Negative) 04/27/21 Unknown Urine Blood Mod (Negative) 04/27/21 Unknown Urine Nitrite Neg (Negative) 04/27/21 Unknown Urine Bilirubin Neg (Negative) 04/27/21 Unknown Urine Urobilinogen < 2.0 mg/dL (<2.0) 04/27/21 Unknown Ur Leukocyte Esterase Neg (Negative) 04/27/21 Unknown Urine WBC (Auto) < 1.0 /HPF (0.0-6.0) 04/27/21 Unknown Urine RBC (Auto) < 1.0 /HPF (0.0-6.0) 04/27/21 Unknown U Epithel Cells (Auto) 4.0 /HPF (0-13.0) 04/27/21 Unknown Urine Bacteria (Auto) 1+ /HPF (Negative) 04/27/21 Unknown Urine Mucus Few /HPF 04/27/21 Unknown Active Medications - Current Medications Current Medications: Generic Name Dose Route Start Last Admin Trade Name Freq PRN Reason Stop Dose Admin Dextrose 0 ml 04/27/21 06:23 Dextrose 50% In Water (25gm) 50 Ml Syringe IV Q30MIN PRN Hypoglycemia Protocol Insulin Human Regular 100 100 mls @ 8 mls/hr 04/27/21 06:00 04/28/21 07:51 units/ Sodium Chloride IV 0 units/hr TITR FARHEEN 0 mls/hr Titration Protocol 8 UNITS/HR Sodium Bicarbonate 150 meq/ 1,150 mls @ 125 mls/hr 04/27/21 09:00 04/27/21 09:52 Dextrose IV 125 mls/hr DIRECT FARHEEN Administration Potassium Chloride/Dextrose/Sod Cl 20 meq in 1,000 mls @ 125 mls/hr 04/27/21 19:00 04/27/21 18:48 D5w/0.45% Nacl/Kcl 20 Meq IV 125 mls/hr DIRECT FARHEEN Administration Nutrition/Malnutrition Assess - Dietary Evaluation Nutrition/Malnutrition Findings: Nutrition Notes Start: 04/27/21 10:49 Freq: Status: Active Protocol: Document 04/27/21 10:50 JANNIE (Rec: 04/27/21 10:53 JANNIE [id number]) Nutrition Notes Need for Assessment generated from: MD Order,Education Initial or Follow up Brief Note Current Diet N/A. Height 5 ft 9 in Weight 87.1 kg [place] Body Weight (kg) 72.72 BMI 28.3 Weight change and time frame None reported at admission. Weight Status Overweight Subjective/Other Information RD consult for Nutrition Education. Pt still on ED, not a candidate for Nutrition Education at the time, will assess feasibility on F/U. Percent of energy/protein needs met: No diet order available at the time. Nutrition Intervention Follow-Up By: 05/04/21 Additional Comments Nutrition education will be provided on F/U if feasible. When pertinent, continue monitoring food tolerance, %PO intake of meals, and BM.
--- NOTE | 2021-04-28 13:07 | Event Note ---
Date: 04/28/21 Anion GAP had gotten better then worse with next draw. insulin gtt may have been off. Back on now. Repeat in 6 hours. Agree with IMS that once closed, discharged to home.
[2021-04-28] MEDS: D5W/0.45% NACL/KCL 20 MEQ 20 MEQ/1,000 ML BAG IV SCH ×2 (13:58→22:42)
[2021-04-28] MEDS ORDERED: SODIUM BICARB 8.4% 50 MEQ/50 ML SYRINGE IV ONE ×2 (14:51)
[2021-04-28 16:18] LABS: BUN/Creatinine Ratio 14; Blood Urea Nitrogen 20 mg/dL (9-20); Calcium 9.2 mg/dL (8.4-10.2); Hemolysis Index 8
[2021-04-28 18:34] LABS: BUN/Creatinine Ratio 16; Blood Urea Nitrogen 19 mg/dL (9-20); Calcium 9.1 mg/dL (8.4-10.2); Hemolysis Index 28
[2021-04-28 21:35] LABS: BUN/Creatinine Ratio 14; Blood Urea Nitrogen 18 mg/dL (9-20); Calcium 9.2 mg/dL (8.4-10.2); Hemolysis Index 6
[2021-04-29 05:19] LABS: Basophils % (Auto) 0.1 % (0.0-1.8); Hematocrit 45.4 % (35.5-45.6); Hemoglobin 14.5 gm/dl (11.8-15.2); Lymphocytes % (Auto) 6.4 % (13.4-35.0); Mean Corpuscular HGB Conc 32 % (32-34); Mean Corpuscular Volume 83 fl (84-94); Monocytes # (Auto) 1.1 K/mm3 (0.0-0.8); Monocytes % (Auto) 7.1 % (0.0-7.3); Platelet Count 175 K/mm3 (140-440); Red Blood Count 5.46 M/mm3 (3.65-5.03); Red Cell Distribution Width 15.3 % (13.2-15.2)
[2021-04-29 05:42] LABS: BUN/Creatinine Ratio 16; Blood Urea Nitrogen 18 mg/dL (9-20); Calcium 9.2 mg/dL (8.4-10.2); Hemolysis Index 9
[2021-04-29] MEDS ORDERED: INSULIN GLARGINE 100 UNITS/ML SUB-Q SCH (09:00)
--- NOTE | 2021-04-29 11:48 | Progress Note ---
Assessment and Plan Assessment and plan: HPI: 40-year-old male past medical history of type 1 diabetes on insulin presenting to our facility for general malaise associated with nausea and vomiting. Onset was since 6 PM yesterday. Patient denies any fevers, chills, body aches. Blood sugars were checked yesterday and noted to be in 500s. He wears a insulin pump and stated that he has had some concerns with malfunctioning. He also stated he needed more insulin for his pump's reservoir. His printing plate setter office had sent the prescription to his pharmacy but it only just got filled today. Patient was brought to emergency room yesterday by . Patient is adamant that he is compliant with his insulin regimen and counts his carbohydrates. He states his fasting AM sugars typically range from 75 to 110 mg/dL. He follows with Dr. Lila Crow his printing plate setter. He states his last episode of DKA was more than 10 years ago. He has been a type 1 diabetic for 25 years and self reports an A1c of 7.3. On my encounter, patient states that he is feeling better. Admitted for DKA to ICU. Hospital Course: 04/27/21: Currently ICU status. Patient clinical status improved. Once anion gap closed and patient tolerating p.o., can start subcutaneous insulin injections. anticipate d/c in next 24 hrs. 04/28/21: Serial BMP's demonstrate worsening of AG. Coordinated with RN to continue insulin drip and uptitrate D5W+ 20K as need to maintain insulin gtt. WIll follow anion gap. Once closed and patient tolerating PO, will plan for discharge. Anticipate in next 12- 24 hrs. 04/29/21: GAP re-opened overnight. Restarted on insulin gtt/ D5-1/2 NS. GAP now 13. Lantus 10 units ordered . Will follow up repeat bmp. can have diabetic diet. Discharge this afternoon if able to tolerate diet and gap remains closed. Assessment and Plan: #Diabetic ketoacidosis - suspect patient has had a malfunctioning insulin pump/out of insulin - Blood sugars in 687 on admission, A, VBG 6.9, UA shows elevated glucose+ketones - Fluids and insulin gtt per DKA protocol - start bicarb gtt - trend gap on serial bmp - CCM consulted #Severe metabolic acidosis - low bicarb: 3, ph: 6.9 - bicarb gtt - DKA management as above. - trend on serial bmp for improvement #Hyperkalemia - 6.6 -->5.2 - corrected with insulin gtt. - trend on bmp #SIRS POA - elevated wbc, LA, likey reactive from DKA - doubt infectious etiology #Type 2 diabetes with hyperglycemia - accuchecks q1hr until gap closes - uses insulin pump at home, pump had malfunction - follows with printing plate setter as an outpatient - self reports a1c: 7.3 - ordered a1c. #Advance care planning Disease education conducted, care plan discussed, diagnoses discussed, prognosis discussed, patient is full code, patient acknowledges understanding and agree with care plan, +30 minutes. The high probability of a clinically significant, sudden or life threatening deterioration of the [endo, renal] system(s) required my full and direct attention, intervention and personal management. The aggregate critical care time was [60] minutes. This time is in addition to time spent performing reported procedures but includes the following: [x] Data Review and interpretation [x] Patient assessment and monitoring of vital signs [x] Documentation [x] Medication orders and management History Interval history: No acute complaints resting comfortably. Hospitalist Physical - Physical exam Narrative exam: Physical Exam: VITAL SIGNS: Reviewed. GENERAL: The patient appears normally developed, Vital signs as documented. HEAD: No signs of head trauma. EYES: Pupils are equal. Extraocular motions intact. EARS: Hearing grossly intact. MOUTH: Oropharynx is normal. NECK: No adenopathy, no JVD. CHEST: Chest with clear breath sounds bilaterally. No wheezes, rales, or rhonchi. CARDIAC: Regular rate and rhythm. S1 and S2, without murmurs, gallops, or rubs. VASCULAR: No Edema. Peripheral pulses normal and equal in all extremities. ABDOMEN: Soft, non tender and non distended. No rebound or guarding, and no masses palpated. Bowel Sounds normal. MUSCULOSKELETAL: Good range of motion of all major joints. Extremities without clubbing, cyanosis or edema. NEUROLOGIC EXAM: Alert and oriented x 4. no focal sensory or strength deficits. PSYCHIATRIC: Mood normal. SKIN: detail exam as documented in skin assessment - Constitutional Vitals: Temp Pulse Resp BP Pulse Ox 99.0 F 77 18 135/88 97 04/27/21 04:38 04/29/21 11:00 04/29/21 11:15 04/29/21 11:00 04/29/21 11:15 Results - Labs CBC & Chem 7: 04/29/21 04:36 04/29/21 04:36 Labs: Laboratory Last Values WBC 15.7 K/mm3 (4.5-11.0) H 04/29/21 04:36 RBC 5.46 M/mm3 (3.65-5.03) H 04/29/21 04:36 Hgb 14.5 gm/dl (11.8-15.2) 04/29/21 04:36 Hct 45.4 % (35.5-45.6) D 04/29/21 04:36 MCV 83 fl (84-94) L 04/29/21 04:36 MCH 27 pg (28-32) L 04/29/21 04:36 MCHC 32 % (32-34) 04/29/21 04:36 RDW 15.3 % (13.2-15.2) H 04/29/21 04:36 Plt Count 175 K/mm3 (140-440) 04/29/21 04:36 Lymph % (Auto) 6.4 % (13.4-35.0) L 04/29/21 04:36 [place] % (Auto) 7.1 % (0.0-7.3) 04/29/21 04:36 Eos % (Auto) 0.0 % (0.0-4.3) 04/29/21 04:36 Baso % (Auto) 0.1 % (0.0-1.8) 04/29/21 04:36 Lymph # (Auto) 1.0 K/mm3 (1.2-5.4) L 04/29/21 04:36 [place] # (Auto) 1.1 K/mm3 (0.0-0.8) H 04/29/21 04:36 Eos # (Auto) 0.0 K/mm3 (0.0-0.4) 04/29/21 04:36 Baso # (Auto) 0.0 K/mm3 (0.0-0.1) 04/29/21 04:36 Add Manual Diff Complete 04/27/21 04:53 Total Counted 100 04/27/21 04:53 Seg Neutrophils % 86.4 % (40.0-70.0) H 04/29/21 04:36 Seg Neuts % (Manual) 82.0 % (40.0-70.0) H 04/27/21 04:53 Band Neutrophils % 4.0 % 04/27/21 04:53 Lymphocytes % (Manual) 8.0 % (13.4-35.0) L 04/27/21 04:53 Reactive Lymphs % (Man) 0 % 04/27/21 04:53 Monocytes % (Manual) 4.0 % (0.0-7.3) 04/27/21 04:53 Eosinophils % (Manual) 2.0 % (0.0-4.3) 04/27/21 04:53 Basophils % (Manual) 0 % (0.0-1.8) 04/27/21 04:53 Metamyelocytes % 0 % 04/27/21 04:53 Myelocytes % 0 % 04/27/21 04:53 Promyelocytes % 0 % 04/27/21 04:53 Blast Cells % 0 % 04/27/21 04:53 Nucleated RBC % Not Reportable 04/27/21 04:53 Seg Neutrophils # 13.6 K/mm3 (1.8-7.7) H 04/29/21 04:36 Seg Neutrophils # Man 23.5 K/mm3 (1.8-7.7) H 04/27/21 04:53 Band Neutrophils # 1.1 K/mm3 04/27/21 04:53 Lymphocytes # (Manual) 2.3 K/mm3 (1.2-5.4) 04/27/21 04:53 Abs React Lymphs (Man) 0.0 K/mm3 04/27/21 04:53 Monocytes # (Manual) 1.1 K/mm3 (0.0-0.8) H 04/27/21 04:53 Eosinophils # (Manual) 0.6 K/mm3 (0.0-0.4) H 04/27/21 04:53 Basophils # (Manual) 0.0 K/mm3 (0.0-0.1) 04/27/21 04:53 Metamyelocytes # 0.0 K/mm3 04/27/21 04:53 Myelocytes # 0.0 K/mm3 04/27/21 04:53 Promyelocytes # 0.0 K/mm3 04/27/21 04:53 Blast Cells # 0.0 K/mm3 04/27/21 04:53 WBC Morphology Not Reportable 04/27/21 04:53 Hypersegmented Neuts Not Reportable 04/27/21 04:53 Hyposegmented Neuts Not Reportable 04/27/21 04:53 Hypogranular Neuts Not Reportable 04/27/21 04:53 Smudge Cells Not Reportable 04/27/21 04:53 Toxic Granulation Not Reportable 04/27/21 04:53 Toxic Vacuolation 1+ 04/27/21 04:53 Dohle Bodies Not Reportable 04/27/21 04:53 Pelger-Huet Anomaly Not Reportable 04/27/21 04:53 Ruperto Rods Not Reportable 04/27/21 04:53 Platelet Estimate Appears normal 04/27/21 04:53 Clumped Platelets Not Reportable 04/27/21 04:53 Plt Clumps, EDTA Not Reportable 04/27/21 04:53 Large Platelets Not Reportable 04/27/21 04:53 Giant Platelets Not Reportable 04/27/21 04:53 Platelet Satelliting Not Reportable 04/27/21 04:53 Plt Morphology Comment Not Reportable 04/27/21 04:53 RBC Morphology Not Reportable 04/27/21 04:53 Dimorphic RBCs Not Reportable 04/27/21 04:53 Polychromasia Not Reportable 04/27/21 04:53 Hypochromasia Not Reportable 04/27/21 04:53 Poikilocytosis Not Reportable 04/27/21 04:53 Anisocytosis Not Reportable 04/27/21 04:53 Microcytosis Not Reportable 04/27/21 04:53 Macrocytosis Not Reportable 04/27/21 04:53 Spherocytes Not Reportable 04/27/21 04:53 Pappenheimer Bodies Not Reportable 04/27/21 04:53 Sickle Cells Not Reportable 04/27/21 04:53 Target Cells Not Reportable 04/27/21 04:53 Tear Drop Cells Not Reportable 04/27/21 04:53 Ovalocytes Not Reportable 04/27/21 04:53 Helmet Cells Not Reportable 04/27/21 04:53 Yusuf-Steelton Bodies Not Reportable 04/27/21 04:53 [place] Rings Not Reportable 04/27/21 04:53 Cuthbert Cells Not Reportable 04/27/21 04:53 Bite Cells Not Reportable 04/27/21 04:53 Crenated Cell Not Reportable 04/27/21 04:53 Elliptocytes Not Reportable 04/27/21 04:53 Acanthocytes (Spur) Not Reportable 04/27/21 04:53 Rouleaux Not Reportable 04/27/21 04:53 Hemoglobin C Crystals Not Reportable 04/27/21 04:53 Schistocytes Not Reportable 04/27/21 04:53 Malaria parasites Not Reportable 04/27/21 04:53 Roberto Bodies Not Reportable 04/27/21 04:53 Hem Pathologist Commnt No 04/27/21 04:53 PT 16.6 Sec. (12.2-14.9) H 04/27/21 04:53 INR 1.21 (0.87-1.13) H 04/27/21 04:53 APTT 26.6 Sec. (24.2-36.6) 04/27/21 04:53 VBG pH 6.973 (7.320-7.420) L* 04/27/21 04:53 Sodium 146 mmol/L (137-145) H 04/29/21 04:36 Potassium 4.1 mmol/L (3.6-5.0) 04/29/21 04:36 Chloride 111.3 mmol/L (98-107) H 04/29/21 04:36 Carbon Dioxide 22 mmol/L (22-30) 04/29/21 04:36 Anion Gap 17 mmol/L 04/29/21 04:36 BUN 18 mg/dL (9-20) 04/29/21 04:36 Creatinine 1.1 mg/dL (0.8-1.3) 04/29/21 04:36 Estimated GFR > 60 ml/min 04/29/21 04:36 BUN/Creatinine Ratio 16 % 04/29/21 04:36 Glucose 115 mg/dL (75-100) H 04/29/21 04:36 POC Glucose 226 mg/dL (70-105) H 04/29/21 10:46 Hemoglobin A1c 8.9 % (4-6) H 04/27/21 15:56 Lactic Acid 1.40 mmol/L (0.7-2.0) 04/27/21 15:56 Calcium 9.2 mg/dL (8.4-10.2) 04/29/21 04:36 Phosphorus 9.00 mg/dL (2.5-4.5) H 04/27/21 06:38 Magnesium 2.80 mg/dL (1.7-2.3) H 04/27/21 06:38 Total Bilirubin 0.20 mg/dL (0.1-1.2) 04/27/21 04:53 AST 19 units/L (5-40) 04/27/21 04:53 ALT 26 units/L (7-56) 04/27/21 04:53 Alkaline Phosphatase 148 units/L (35-129) H 04/27/21 04:53 Total Protein 7.8 g/dL (6.3-8.2) 04/27/21 04:53 Albumin 4.9 g/dL (3.9-5) 04/27/21 04:53 Albumin/Globulin Ratio 1.7 % 04/27/21 04:53 Urine Color Straw (Yellow) 04/27/21 Unknown Urine Turbidity Clear (Clear) 04/27/21 Unknown Urine pH 5.0 (5.0-7.0) 04/27/21 Unknown Ur Specific [place] 1.020 (1.003-1.030) 04/27/21 Unknown Urine Protein 30 mg/dl mg/dL (Negative) 04/27/21 Unknown Urine Glucose (UA) >=500 mg/dL (Negative) 04/27/21 Unknown Urine Ketones 80 mg/dL (Negative) 04/27/21 Unknown Urine Blood Mod (Negative) 04/27/21 Unknown Urine Nitrite Neg (Negative) 04/27/21 Unknown Urine Bilirubin Neg (Negative) 04/27/21 Unknown Urine Urobilinogen < 2.0 mg/dL (<2.0) 04/27/21 Unknown Ur Leukocyte Esterase Neg (Negative) 04/27/21 Unknown Urine WBC (Auto) < 1.0 /HPF (0.0-6.0) 04/27/21 Unknown Urine RBC (Auto) < 1.0 /HPF (0.0-6.0) 04/27/21 Unknown U Epithel Cells (Auto) 4.0 /HPF (0-13.0) 04/27/21 Unknown Urine Bacteria (Auto) 1+ /HPF (Negative) 04/27/21 Unknown Urine Mucus Few /HPF 04/27/21 Unknown Active Medications - Current Medications Current Medications: Generic Name Dose Route Start Last Admin Trade Name Freq PRN Reason Stop Dose Admin Dextrose 0 ml 04/27/21 06:23 Dextrose 50% In Water (25gm) 50 Ml Syringe IV Q30MIN PRN Hypoglycemia Protocol Insulin Human Regular 100 100 mls @ 8 mls/hr 04/27/21 06:00 04/29/21 10:56 units/ Sodium Chloride IV 10 units/hr TITR FARHEEN 10 mls/hr Titration Protocol 8 UNITS/HR Sodium Bicarbonate 150 meq/ 1,150 mls @ 125 mls/hr 04/27/21 09:00 04/27/21 09:52 Dextrose IV 125 mls/hr DIRECT FARHEEN Administration Potassium Chloride/Dextrose/Sod Cl 20 meq in 1,000 mls @ 125 mls/hr 04/27/21 19:00 04/28/21 22:42 D5w/0.45% Nacl/Kcl 20 Meq IV 125 mls/hr DIRECT FARHEEN Administration Insulin Glargine 10 units 04/29/21 09:00 04/29/21 10:58 Insulin Glargine 100 Units/Ml SUB-Q 04/29/21 12:00 10 units ONCE@0900 FARHEEN Administration Nutrition/Malnutrition Assess - Dietary Evaluation Nutrition/Malnutrition Findings: Nutrition Notes Start: 04/27/21 10:49 Freq: Status: Active Protocol: Document 04/27/21 10:50 JANNIE (Rec: 04/27/21 10:53 JANNIE [id number]) Nutrition Notes Need for Assessment generated from: MD Order,Education Initial or Follow up Brief Note Current Diet N/A. Height 5 ft 9 in Weight 87.1 kg Friend Body Weight (kg) 72.72 BMI 28.3 Weight change and time frame None reported at admission. Weight Status Overweight Subjective/Other Information RD consult for Nutrition Education. Pt still on ED, not a candidate for Nutrition Education at the time, will assess feasibility on F/U. Percent of energy/protein needs met: No diet order available at the time. Nutrition Intervention Follow-Up By: 05/04/21 Additional Comments Nutrition education will be provided on F/U if feasible. When pertinent, continue monitoring food tolerance, %PO intake of meals, and BM.
[2021-04-29 11:56] LABS: BUN/Creatinine Ratio 18; Blood Urea Nitrogen 18 mg/dL (9-20); Calcium 8.9 mg/dL (8.4-10.2); Hemolysis Index 13
[2021-04-29] MEDS: INSULIN REGULAR, HUMAN 100 UNITS in SODIUM CHLORIDE 0.9% 99 ML IV SCH (12:30)
[2021-04-29 16:09] LABS: BUN/Creatinine Ratio 23; Blood Urea Nitrogen 18 mg/dL (9-20); Calcium 8.7 mg/dL (8.4-10.2); Hemolysis Index 4
--- NOTE | 2021-04-29 18:09 | Discharge Summary ---
Providers - Providers Date of Admission: 04/27/21 07:23 Date of discharge: 04/29/21 Attending physician: ZACH ORLANDO MD 04/27/21 06:24 Consult to Dietitian/Nutrition [CONS] Routine Physician Instructions: Reason For Exam: DKA Reason for Consult: Nutrition Recommendations Reason for Consult: Diet education 04/27/21 08:15 Consult to Physician [CONS] Routine Comment: Consulting Provider: AFTAB CLARK Physician Instructions: Reason For Exam: dka management Primary care physician: [facility]PER[facility] HELPER Hospitalization Reason for admission: nausea Condition: Stable Hospital course: HPI: 40-year-old male past medical history of type 1 diabetes on insulin presenting to our facility for general malaise associated with nausea and vomiting. Onset was since 6 PM yesterday. Patient denies any fevers, chills, body aches. Blood sugars were checked yesterday and noted to be in 500s. He wears a insulin pump and stated that he has had some concerns with malfunctioning. He also stated he needed more insulin for his pump's reservoir. His laborer concrete paving office had sent the prescription to his pharmacy but it only just got filled today. Patient was brought to emergency room yesterday by . Patient is adamant that he is compliant with his insulin regimen and counts his carbohydrates. He states his fasting AM sugars typically range from 75 to 110 mg/dL. He follows with Dr. Lila Crow his laborer concrete paving. He states his last episode of DKA was more than 10 years ago. He has been a type 1 diabetic for 25 years and self reports an A1c of 7.3. On my encounter, patient states that he is feeling better. Admitted for DKA to ICU. Hospital Course: 04/27/21: Currently ICU status. Patient clinical status improved. Once anion gap closed and patient tolerating p.o., can start subcutaneous insulin injections. anticipate d/c in next 24 hrs. 04/28/21: Serial BMP's demonstrate worsening of AG. Coordinated with RN to continue insulin drip and uptitrate D5W+ 20K as need to maintain insulin gtt. WIll follow anion gap. Once closed and patient tolerating PO, will plan for discharge. Anticipate in next 12- 24 hrs. 04/29/21: GAP re-opened overnight. Restarted on insulin gtt/ D5-1/2 NS. GAP now 13. Lantus 10 units ordered . Will follow up repeat bmp. can have diabetic diet. Discharge this afternoon if able to tolerate diet and gap remains closed. 04/29/21: Anion gap now closed on two consecutive bmp. BG 83. Patient instructed to follow up with laborer concrete paving essie to address insulin pump issues. Will discharge home with rx for lantus 20 units qhs and humulin R 10 units achs or per sliding scale he utilizes at home. Assessment and Plan: #Diabetic ketoacidosis - suspect patient has had a malfunctioning insulin pump/out of insulin - Blood sugars in 687 on admission, A, VBG 6.9, UA shows elevated glucose+ketones - Fluids and insulin gtt per DKA protocol - start bicarb gtt - trend gap on serial bmp - CCM consulted #Severe metabolic acidosis - low bicarb: 3, ph: 6.9 - bicarb gtt - DKA management as above. - trend on serial bmp for improvement #Hyperkalemia - 6.6 -->5.2 - corrected with insulin gtt. - trend on bmp #SIRS POA - elevated wbc, LA, likey reactive from DKA - doubt infectious etiology #Type 2 diabetes with hyperglycemia - accuchecks q1hr until gap closes - uses insulin pump at home, pump had malfunction - follows with laborer concrete paving as an outpatient - self reports a1c: 7.3 - ordered a1c. #Advance care planning Disease education conducted, care plan discussed, diagnoses discussed, prognosis discussed, patient is full code, patient acknowledges understanding and agree with care plan, +30 minutes. Disposition: HOME / SELF CARE / HOMELESS Final Discharge Diagnosis (Prints w/discharge instructions): diabetic ketoacidosis Core Measure Documentation - Palliative Care Palliative Care/ Comfort Measures: Not Applicable - Core Measures Any of the following diagnoses?: none Exam - Physical Exam Narrative exam: Physical Exam: VITAL SIGNS: Reviewed. GENERAL: The patient appears normally developed, Vital signs as documented. HEAD: No signs of head trauma. EYES: Pupils are equal. Extraocular motions intact. EARS: Hearing grossly intact. MOUTH: Oropharynx is normal. NECK: No adenopathy, no JVD. CHEST: Chest with clear breath sounds bilaterally. No wheezes, rales, or rhonchi. CARDIAC: Regular rate and rhythm. S1 and S2, without murmurs, gallops, or rubs. VASCULAR: No Edema. Peripheral pulses normal and equal in all extremities. ABDOMEN: Soft, non tender and non distended. No rebound or guarding, and no masses palpated. Bowel Sounds normal. MUSCULOSKELETAL: Good range of motion of all major joints. Extremities without clubbing, cyanosis or edema. NEUROLOGIC EXAM: Alert and oriented x 4. no focal sensory or strength deficits. PSYCHIATRIC: Mood normal. SKIN: detail exam as documented in skin assessment - Constitutional Vitals: Temp Pulse Resp BP Pulse Ox 99.0 F 95 H 11 L 119/74 100 04/27/21 04:38 04/29/21 17:00 04/29/21 17:00 04/29/21 17:00 04/29/21 17:00 Plan Plan of Treatment: Mr Adler. You were admitted for diabetic ketoacidosis due to malfunctioning of your insulin pump. You were also noted to have acute kidney injury which was likely due to dehydration. We treated you with IV fluids and IV insulin and you improved. Your blood sugars normalized and your kidney function normalized. A prescription for lantus 20 units subq nightly and humulin R 10 units with meals and at night (can also utilize this for sliding scale insulin admin) has been transmitted to your [facility] pharmacy. This is only temporary until you are able to see your laborer concrete paving and address your insulin pump issues. We advise you make an appointment as soon as possible to see your laborer concrete paving. Follow up with: PRIMARY CAREMD [Primary Care Provider] - 3-5 Days Prescriptions: Insulin Glargine [Lantus VIAL] 20 unit SUB-Q QHS 30 Days #3 vial Insulin Regular, Human [Humulin R] 10 unit SUB-Q ACHS 30 Days #5 vial
[2021-04-29 18:12] VITALS: BP 141/72
== END 2021-04-29 20:02 | disposition home or self-care (01) | DRG 919 ==
LOC: ED 04:33 → CC1 07:23
PROVIDERS: ADMIT Internal Medicine; ATTEND Internal Medicine
DX: T85.694A Other mechanical complication of insulin pump, initial encounter (principal); E11.10 Type 2 diabetes mellitus with ketoacidosis without coma; R65.10 Systemic inflammatory response syndrome (SIRS) of non-infectious origin without acute organ dysfunction; D72.829 Elevated white blood cell count, unspecified; E86.0 Dehydration; E87.5 Hyperkalemia; Z83.3 Family history of diabetes mellitus
CPT/HCPCS: 36415; 71046; 80048; 80053; 81001; 82140; 82805; 82962; 83036; 83735; 84100; 85007; 85025; 85610; 85730; G0378; J3480; J3490; Q0162; Q9967; J1815; J7030; J7070